=== PATIENT | male | born 1955 | race African-American/Black ===

== ENCOUNTER → 2017-02-25 | Outpatient (CLI) | payer MEDICARE, MEDICAID ==
[~2017-02-25] VITALS: Ht 177.8 cm; Wt 141.1 kg
[~2017-02-25] MED LIST: ALLP100T PO; AML5T; AMLO10TA82 PO; ASP325T PO; ATOR80TA PO; CATHETER FLUSH 10 ML SYR IV PRN; CLPD75T PO; COLC0.6T7 PO; FENT50VI18 IJ; GLIM4TAB PO; HYDR-3820 PO; HYDROCODONE/APAP; HYZAAR; ISOS30TA3 PO; LOSA1TAB15 PO; MELO15TA39 PO; METO-272 PO; MNTL10T PO; MTF500T PO; MTP100TCR PO; NITRO; PANT40TA2 PO; POTA10CA43 PO; PROVENTIL; REGADENOSON 0.4 MG/5 ML SYR (LEXISCAN) IV ONE; SIMV40TA2; SUCR1TAB36 PO; VALS1TAB43 PO; [UNRECOGNIZED DRUG - CODE] IM
[2017-02-25 08:08] LABS: ALANINE AMINOTRANSFERASE 33 U/L (0-55); ALBUMIN 4.2 G/DL (3.2-4.5); ANION GAP 10 MMOL/L (5-14); ASPARTATE AMINO TRANSFERASE 26 U/L (5-34); BILIRUBIN,TOTAL 0.8 MG/DL (0.1-1.0); BLOOD UREA NITROGEN 11 MG/DL (7-18); BUN/CREATININE RATIO 13; CALCIUM 8.9 MG/DL (8.5-10.1); CARBON DIOXIDE 24 MMOL/L (21-32); CHLORIDE 106 MMOL/L (98-107); CHOLESTEROL 122 MG/DL (< 200); CREATININE SERUM 0.83 MG/DL (0.60-1.30); DIRECT LDL 65 MG/DL (1-129); GFR ESTIMATED > 60; GLUCOSE 179 MG/DL (70-105); POTASSIUM 3.7 MMOL/L (3.6-5.0); SODIUM 140 MMOL/L (135-145); TOTAL PROTEIN 7.1 G/DL (6.4-8.2); TRIGLYCERIDES 75 MG/DL (<150); VLDL CHOLESTEROL 15 MG/DL (5-40)
[2017-02-25 09:06] VITALS: BP 184/105
[2017-02-25 09:24] VITALS: BP 204/97
--- NOTE | 2017-02-26 12:29 | STRESS TEST ---
DATE OF SERVICE: 02/25/2017 RESTING AND POST REGADENOSON TECHNETIUM 99M TETROFOSMIN SPECT CT IMAGING ORDERING PHYSICIAN: Bella Yeboah APRN. PRIMARY PHYSICIAN: Dr. Mae. OTHER PHYSICIAN: Dr. Mcqueen. CLINICAL DIAGNOSIS: Chest discomfort, coronary artery disease, hypertension, hyperlipidemia. Baseline images were carried out after injection of 10.22 mCi of sloljrdxla-67b-gsejqdpyhzs. This was followed by 0.4 mg regadenoson and 29.3 mCi of technetium 99m-tetrofosmin for stress imaging. The electrocardiogram showed sinus rhythm at baseline. There was subtle nonspecific T-wave abnormality. The electrocardiogram did not change significantly with the regadenoson infusion. The patient tolerated the procedure well. Review of images at rest and following stress did not indicate any distinct perfusion defects consistent with significant myocardial ischemia or infarction. Gaited images show normal global left ventricular systolic function with a calculated ejection fraction of 62%. Left ventricular ejection fraction end diastolic volume is 135 mL. TID is absent (1.07). CONCLUSION: 1. No evidence of any significant myocardial ischemia or infarction on this study. 2. Normal regional wall motion. 3. Normal global left ventricular systolic function with a calculated ejection fraction of 62%. 4. Mild to moderate cardiomegaly. Job ID: [id number] DocumentID: [id number] Dictated Date: 02/25/2017 16:08:55 Emergency Department Physician Date: 02/26/2017 08:10:45 Dictated By: HALINA MCQUEEN MD, MA, FACP, FACC,
== END ==
LOC: CARD 07:29
PROVIDERS: ATTEND Nurse Practitioner Family
DX: R07.89 Other chest pain (principal); I25.10 Atherosclerotic heart disease of native coronary artery without angina pectoris; I10 Essential (primary) hypertension; E78.4 Other hyperlipidemia
CPT/HCPCS: 36415; 78452; 80053; 80061; 93017

== ENCOUNTER 2018-03-17 07:06 | Day surgery (SDC) | payer MEDICARE, MEDICAID ==
[~2018-03-17] VITALS: Ht 180.3 cm; Wt 135.6 kg
[2018-03-17] VITALS (11 sets, daily range): BP systolic 150–207; BP diastolic 93–118
[~2018-03-17 07:06] MED LIST changes: -CATHETER FLUSH 10 ML SYR IV PRN; -METO-272 PO; +METO-370 PO; -REGADENOSON 0.4 MG/5 ML SYR (LEXISCAN) IV ONE
--- OUTSIDE RECORDS SUMMARY | 2018-03-17 07:11 | XMS REPORT ---
Author Author EBONI RUIZBERLYN [facility] Address [address] [place] [address] Care Team Providers Care Government Clerk Name Role Phone RUIZ JENNIFER Unavailable PROBLEMS Type Condition ICD9-CM Code [id number] Code Onset Dates Condition Status SNOMED Code Problem PPV23 (PNEUMOVAX) DX V03.82 Active 98712728 Problem Need for prophylactic vaccination and inoculation, Influenza V04.81 Active [id number] ALLERGIES No Known Allergies ENCOUNTERS Encounter Location Date Diagnosis [facility] [id number] [place] [id number] Jan, Dental examination Z01.20 [facility] [id number] [place] [phone] Aug, Dental examination Z01.20 [facility] [id number] [place] [address] Jul, Encounter for immunization Z23 [facility] [id number] [place] [address] Apr, Dental examination Z01.20 [facility] [id number] [place] [phone] Dec, Dental examination Z01.20 [facility] [id number] [place] [address] Dec, Dental examination Z01.20 [facility] [id number] [place] [address] Jul, Influenza vaccine administered V04.81 [facility] [id number] [place] [address] Nov, [facility] [id number] [place] [address] Nov, [facility] [address] [facility] [id number] [address] Aug, [facility] [address] [facility] [id number] [place] [address] Aug, [facility] [address] [facility] [id number] [place] [address] Jul, [facility] [address] [facility] [id number] [place] [address] Jul, IMMUNIZATIONS No Known Immunizations SOCIAL HISTORY Never Assessed REASON FOR VISIT dental periomaintenance PLAN OF CARE Activity Details Follow Up 4 Months Reason:hygiene recare + exam and radiographs VITAL SIGNS Blood pressure systolic 130 mmHg 2017-04-18 Blood pressure diastolic 86 mmHg 2017-04-18 MEDICATIONS Medication Instructions Dosage Frequency Start Date End Date Duration Status Singulair 10 MG Orally Once a day 1 tablet in the evening 24h Active Plavix 75 MG Orally Once a day 1 tablet 24h Active Metformin HCl 500 MG Orally Twice a day 1 tablet with meals 12h Active Losartan Potassium 50 MG Orally Once a day 1 tablet 24h Active Glimepiride 1 MG Orally Once a day 1 tablet with breakfast or the first main meal of the day 24h Active Calcarb 600 1500 (600 Ca) MG Active RESULTS No Results PROCEDURES Procedure Date Ordered Result Body Site Periodontal maint procedures April 18, 2017 INSTRUCTIONS MEDICATIONS ADMINISTERED No Known Medications MEDICAL (GENERAL) HISTORY Type Description Date Medical History Diabetes Type II Medical History Hypertension Medical History Heart Stent 2004 Medical History Total Hip Replacement 2000 Surgical History total hip replacement left 2000 Surgical History heart stint 2004 Hospitalization History see above surgeries
--- OUTSIDE RECORDS SUMMARY | 2018-03-17 07:12 | XMS REPORT ---
Author Author JOSE MARIA ARCE [facility] Address [address] [place] [address] Care Team Providers Care Lap Welder Name Role Phone CLAUDE JOSE MARIA Unavailable PROBLEMS Type Condition ICD9-CM Code TYF94-CM Code Onset Dates Condition Status SNOMED Code Problem PPV23 (PNEUMOVAX) DX V03.82 Active 21522505 Problem Need for prophylactic vaccination and inoculation, Influenza V04.81 Active [id number] ALLERGIES No Information ENCOUNTERS Encounter Location Date Diagnosis [facility] [address] [phone] Jan, Dental examination Z01.20 [facility] [address] [id number] Aug, Dental examination Z01.20 [facility] [address] [address] Jul, Encounter for immunization Z23 [facility] [address] [address] Apr, Dental examination Z01.20 [facility] [id number] [place] [id number] Dec, Dental examination Z01.20 [facility] [address] [address] Dec, Dental examination Z01.20 [facility] [address] [address] Jul, Influenza vaccine administered V04.81 [facility] [address] [address] Nov, [facility] [address] [address] Nov, [facility] [address] [facility] [id number] [place] [address] Aug, [facility] [address] [facility] [id number] [address] Aug, [facility] [address] [facility] [id number], [place] [address] Jul, [facility] [address] [facility] [id number], [place] [address] Jul, IMMUNIZATIONS Vaccine Route Administration Date Status FLUARIX QUAD (3 AND UP) 2016 IM Intramuscular Jul 24, 2017 Administered SOCIAL HISTORY Never Assessed REASON FOR VISIT FLU SHOT PLAN OF CARE VITAL SIGNS MEDICATIONS No Known Medications RESULTS No Results PROCEDURES Procedure Date Ordered Result Body Site FLUARIX QUAD (3 & UP)--2014Jul 24, 2017 SINGLE IMMUNIZATION ADMIN Jul 24, 2017 INSTRUCTIONS MEDICATIONS ADMINISTERED No Known Medications MEDICAL (GENERAL) HISTORY Type Description Date Medical History Diabetes Type II Medical History Hypertension Medical History Heart Stent 2004 Medical History Total Hip Replacement 1999 Surgical History total hip replacement left 1999 Surgical History heart stint 2004 Hospitalization History see above surgeries
--- OUTSIDE RECORDS SUMMARY | 2018-03-17 07:12 | XMS REPORT ---
Author Author JENNIFER RUIZ Organization [facility] Address [address] [place] [address] Care Team Providers Care Physics Department Chair Name Role Phone JENNIFER RUIZ Unavailable PROBLEMS Type Condition ICD9-CM Code OLT06-NJ Code Onset Dates Condition Status SNOMED Code Problem Dental examination Z01.20 Active 634270841 Problem PPV23 (PNEUMOVAX) DX V03.82 Active Problem Need for prophylactic vaccination and inoculation, Influenza V04.81 Active [id number] ALLERGIES No Known Allergies SOCIAL HISTORY Never Assessed PLAN OF CARE Activity Details Follow Up 4 Months Reason:dental periodontal maintenance VITAL SIGNS Blood pressure systolic 134 mmHg 2016-12-20 Blood pressure diastolic 88 mmHg 2016-12-20 MEDICATIONS Medication Instructions Dosage Frequency Start Date End Date Duration Status Plavix 75 MG Orally Once a day 1 tablet 24h Active Metformin HCl 500 MG Orally Twice a day 1 tablet with meals 12h Active Calcarb 600 1500 (600 Ca) MG Active Glimepiride 1 MG Orally Once a day 1 tablet with breakfast or the first main meal of the day 24h Active Losartan Potassium 50 MG Orally Once a day 1 tablet 24h Active Singulair 10 MG Orally Once a day 1 tablet in the evening 24h Active RESULTS No Results PROCEDURES Procedure Date Ordered Result Body Site PERIODIC ORAL EXAMINATION Dec 20, 2016 INTRAORL-PERIAPICAL 1 FILM 95508 Dec 20, 2016 INTRAORL-PERIAPICAL EA ADD FILM Dec 20, 2016 INTRAORL-PERIAPICAL EA ADD FILM Dec 20, 2016 PANORAMIC FILM SEE ALSO CODE 32971 Dec 20, 2016 BITEWINGS - FOUR FILMS Dec 20, 2016 IMMUNIZATIONS No Known Immunizations MEDICAL (GENERAL) HISTORY Type Description Date Medical History Diabetes Type II Medical History Hypertension Medical History Heart Stent 2005 Medical History Total Hip Replacement 2000 Surgical History total hip replacement left 2000 Surgical History heart stint 2004 Hospitalization History see above surgeries
--- OUTSIDE RECORDS SUMMARY | 2018-03-17 07:12 | XMS REPORT | Continuity of Care Document ---
Author Author [facility] Address Unknown Phone Unavailable Allergies Active Description Code Type Severity Reaction Onset Reported/Identified Relationship to Patient Clinical Status Yes NKANo Known Allergies NKA Miscellaneous Allergy Unknown N/A 05/25/2007 Medications There is no data. Problems Date Dx Coded Attending Type Code Diagnosis Diagnosed By 03/12/2011 Ot 250.00 DIAB NEGAR WO COMPL, TYPE II OR UNSPEC TY 03/12/2011 Ot 272.4 HYPERLIPIDEMIA NEC/NOS 03/12/2011 Ot 274.9 GOUT NOS 03/12/2011 Ot 278.00 OBESITY, NOS 03/12/2011 Ot 305.1 TOBACCO USE DISORDER 03/12/2011 Ot 401.9 HYPERTENSION NOS 03/12/2011 Ot 413.9 ANGINA PECTORIS NEC/NOS 03/12/2011 Ot 414.01 CORONARY ATHEROSCLEROSIS OF [place] CORON 03/12/2011 Ot 493.90 ASTHMA, UNSPECIFIED 03/12/2011 Ot 715.90 OSTEOARTHROS NOS-UNSPEC 03/12/2011 Ot 780.57 UNSPECIFIED SLEEP APNEA 03/12/2011 Ot 780.79 OTH MALAISE FATIGUE 03/12/2011 Ot 786.05 SHORTNESS OF BREATH 03/12/2011 Ot V43.64 HIP JOINT REPLACEMENT STATUS 03/12/2011 Ot V45.82 PERCUTANEOUS TRANSLUM CORON ANGIOPLASTY 03/12/2011 Ot V58.63 LONG-TERM( CURRENT)USE OF ANTIPLATELET/AN 03/12/2011 Ot V58.66 LONG-TERM ( CURRENT) USE OF ASPIRIN 03/12/2011 Ot V58.69 OTH MED,LT, CURRENT USE 03/12/2011 Ot V85.42 BODY MASS INDEX 45.0-49.9, ADULT 07/10/2012 JOSE MARIA ARCE DO V04.81 FLU DX (3 YRS AND ABOVE, IM) 07/21/2012 Ot 250.00 DIAB NEGAR WO COMPL, TYPE II OR UNSPEC TY 07/21/2012 Ot 272.4 HYPERLIPIDEMIA NEC/NOS 07/21/2012 Ot 274.9 GOUT NOS 07/21/2012 Ot 278.00 OBESITY, NOS 07/21/2012 Ot 305.1 TOBACCO USE DISORDER 07/21/2012 Ot 401.9 HYPERTENSION NOS 07/21/2012 Ot 414.01 CORONARY ATHEROSCLEROSIS OF [place] CORON 07/21/2012 Ot 433.10 CAROTID ARTERY OCCLUSION W O CEREBRAL IN 07/21/2012 Ot 493.90 ASTHMA, UNSPECIFIED 07/21/2012 Ot 607.84 IMPOTENCE, ORGANIC ORIGN 07/21/2012 Ot 780.57 UNSPECIFIED SLEEP APNEA 07/21/2012 Ot 786.59 CHEST PAIN NEC 07/21/2012 Ot V45.82 PERCUTANEOUS TRANSLUM CORON ANGIOPLASTY 07/21/2012 Ot V46.2 SUPPLEMENTAL OXYGEN 07/21/2012 Ot V58.63 LONG-TERM( CURRENT)USE OF ANTIPLATELET/AN 07/21/2012 Ot V58.66 LONG-TERM ( CURRENT) USE OF ASPIRIN 07/21/2012 Ot V58.69 OTH MED,LT, CURRENT USE 07/21/2012 Ot V85.41 BODY MASS INDEX 40.0-44.9, ADULT 04/27/2014 ISA TOLBERT MD Ot 211.3 BENIGN NEOPLASM LG BOWEL 04/27/2014 ISA TOLBERT MD Ot 455.0 INT HEMORRHOID W/O COMPL 04/27/2014 ISA TOLBERT MD Ot 455.2 INT HEMRRHOID W COMP NEC 04/27/2014 ISA TOLBERT MD Ot 562.10 DIVERTICULOSIS COLON (W/O MENT OF HEMORR 11/22/2014 Ot 272.4 11/22/2014 Ot 414.00 11/22/2014 Ot V58.69 11/22/2014 Ot 433.10 11/22/2014 Ot 250.00 11/22/2014 Ot 272.4 11/22/2014 Ot 401.9 11/22/2014 Ot 250.00 11/22/2014 Ot 272.4 11/22/2014 Ot 401.9 11/22/2014 Ot 413.9 11/22/2014 Ot 780.79 11/22/2014 Ot 786.05 11/22/2014 Ot V58.63 11/22/2014 Ot V58.66 11/22/2014 Ot V58.69 11/22/2014 Ot V72.63 11/22/2014 Ot 250.00 11/22/2014 Ot 272.4 11/22/2014 Ot 272.4 11/22/2014 Ot 414.00 11/22/2014 Ot V58.69 11/22/2014 Ot 276.8 11/22/2014 Ot V58.69 11/22/2014 Ot 719.45 11/22/2014 Ot V43.64 11/22/2014 Ot 250.00 11/22/2014 Ot 272.4 11/22/2014 Ot 414.00 11/22/2014 Ot V58.69 11/22/2014 SEGROXANNAE, RENATA M BUSINESS PROPOSAL REP Ot 250.00 11/22/2014 SEGLIE, RENATA M BUSINESS PROPOSAL REP Ot 272.4 11/22/2014 SEGLIE, RENATA M BUSINESS PROPOSAL REP Ot 401.9 11/22/2014 BAIMA, DA L BUSINESS PROPOSAL REP Ot 272.4 11/22/2014 BAIMA, DA L BUSINESS PROPOSAL REP Ot 414.01 11/22/2014 BAIMA, DA L BUSINESS PROPOSAL REP Ot V58.69 11/22/2014 KIERRA, RENATA M BUSINESS PROPOSAL REP Ot 250.00 11/22/2014 KIERRA, RENATA M BUSINESS PROPOSAL REP Ot 272.4 11/22/2014 DIDI ETIENNE, ISA Ot V72.84 11/22/2014 BAIMA, DA L BUSINESS PROPOSAL REP Ot 272.4 11/22/2014 BAIMA, DA L BUSINESS PROPOSAL REP Ot 414.00 11/22/2014 SEGROXANNAE, RENATA M BUSINESS PROPOSAL REP Ot 250.00 11/22/2014 SEGROXANNAE, RENATA M BUSINESS PROPOSAL REP Ot 401.9 11/22/2014 BAIMA, DA L BUSINESS PROPOSAL REP Ot 272.4 11/22/2014 BAIMA, DA L BUSINESS PROPOSAL REP Ot 414.00 11/22/2014 BAIMA, DA L BUSINESS PROPOSAL REP Ot 447.9 12/03/2014 BAIMA, DA L BUSINESS PROPOSAL REP Ot 272.4 12/03/2014 BAIMA, DA L BUSINESS PROPOSAL REP Ot 414.00 12/03/2014 BAIMA, DA L BUSINESS PROPOSAL REP Ot 447.9 12/13/2014 KIERRA ETIENNE, [facility] Ot 715.31 06/27/2015 KIERRA, RENATA M BUSINESS PROPOSAL REP Ot 250.00 06/27/2015 KIERRA, RENATA M BUSINESS PROPOSAL REP Ot 401.9 06/29/2015 KIERRA, RENATA M BUSINESS PROPOSAL REP Ot 250.00 06/29/2015 SEGLIE, RENATA M BUSINESS PROPOSAL REP Ot 401.9 06/30/2015 SEGLIE, RENATA M BUSINESS PROPOSAL REP Ot 250.00 06/30/2015 SEGLIE, RENATA M BUSINESS PROPOSAL REP Ot 401.9 07/13/2015 SEGLIE, RENATA Bailey BUSINESS PROPOSAL REP Ot 250.00 07/13/2015 SEGLIE, RENATA M BUSINESS PROPOSAL REP Ot 401.9 07/24/2015 SEGLIE, RENATA Bailey BUSINESS PROPOSAL REP Ot 250.00 07/24/2015 SEGLIE, RENATA Bailey BUSINESS PROPOSAL REP Ot 401.9 09/06/2015 BAIMADA L BUSINESS PROPOSAL REP Ot E78.5 09/06/2015 BAIMA, DA L BUSINESS PROPOSAL REP Ot F17.200 09/06/2015 BAIMA, DA L BUSINESS PROPOSAL REP Ot G47.30 09/06/2015 BAIMA, DA L BUSINESS PROPOSAL REP Ot I10 09/06/2015 BAIMA, DA L BUSINESS PROPOSAL REP Ot I25.10 09/06/2015 BAIMADA L BUSINESS PROPOSAL REP Ot I77.9 09/21/2015 RICHAR ETIENNE FAC, ALI FACP CCDS Ot E78.5 09/21/2015 RICHAR ETIENNE FAC, ALI FACP CCDS Ot F17.200 09/21/2015 RICHAR ETIENNE FAC, ALI FACP CCDS Ot G47.30 09/21/2015 RICHAR TREJO, ALI FACP CCDS Ot I10 09/21/2015 RICHAR ETIENNE FAC, ALI FACP CCDS Ot I25.10 09/21/2015 RICHAR ETIENNE FAC, ALI FACP CCDS Ot I77.9 10/03/2015 RICHAR ETIENNE FAC, ALI FACP CCDS Ot E78.5 10/03/2015 RICHAR ETIENNE FAC, ALI FACP CCDS Ot F17.200 10/03/2015 RICHAR ETIENNE FACC, ALI FACP CCDS Ot G47.30 10/03/2015 RICHAR ETIENNE FACC, ALI FACP CCDS Ot I10 10/03/2015 RICHAR TREJOC, ALI FACP CCDS Ot I25.10 10/03/2015 RICHAR ETIENNE FACC, ALI FACP CCDS Ot I77.9 01/30/2016 KIERRA ETIENNE, LESLIE R Ot E78.5 01/30/2016 KIERRA ETIENNE, LESLIE R Ot I25.10 01/30/2016 RICHAR ETIENNE FACC, ALI FACP CCDS Ot E78.5 01/30/2016 RICHAR ETIENNE FACC, ALI FACP CCDS Ot I25.10 02/13/2016 RICHAR ETIENNE FACC, ALI FACP CCDS Ot E78.5 02/13/2016 RICHAR ETIENNE FACC, ALI FACP CCDS Ot I25.10 02/16/2016 LESLIE LOZADA MD R Ot E78.5 HYPERLIPIDEMIA, UNSPECIFIED 02/16/2016 KIERRA ETIENNE, LESLIE R Ot I25.10 ATHSCL HEART DISEASE OF [place] CORONARY 02/23/2016 RICHAR ETIENNE FACC, ALI FACP CCDS Ot E78.5 HYPERLIPIDEMIA, UNSPECIFIED 02/23/2016 RICHAR ETIENNE FACC, ALI FACP CCDS Ot I25.10 ATHSCL HEART DISEASE OF [place] CORONARY 03/15/2016 RICHAR ETIENNE FACHaris, ALI FACP CCDS Ot E78.5 HYPERLIPIDEMIA, UNSPECIFIED 03/15/2016 RICHAR ETIENNE FACC, ALI FACP CCDS Ot I25.10 ATHSCL HEART DISEASE OF [place] CORONARY 04/11/2016 RENATA LOZADA Ot E11.9 TYPE 2 DIABETES MELLITUS WITHOUT COMPLIC 04/12/2016 RENATA LOZADA Ot E11.9 TYPE 2 DIABETES MELLITUS WITHOUT COMPLIC 04/18/2016 LESLIE LOZADA MD R Ot M25.551 PAIN IN RIGHT HIP 04/18/2016 LESLIE LOZADA MD R Ot M25.552 PAIN IN LEFT HIP 04/22/2016 SOL TELLEZ, LUKASZ F Ot M54.5 LOW BACK PAIN 04/23/2016 SOL TELLEZ, LUKASZ F Ot M54.5 LOW BACK PAIN 04/26/2016 LESLIE LOZADA MD R Ot M25.551 PAIN IN RIGHT HIP 04/26/2016 LESLIE LOZADA MD R Ot M25.552 PAIN IN LEFT HIP 05/08/2016 RENATA LOZADA Ot E11.9 TYPE 2 DIABETES MELLITUS WITHOUT COMPLIC 05/08/2016 RENATA LOZADA Ot I10 ESSENTIAL (PRIMARY) HYPERTENSION 05/08/2016 RENATA LOZADA Ot I25.10 ATHSCL HEART DISEASE OF [place] CORONARY 05/10/2016 SOL DOLUKASZ Ot M54.5 LOW BACK PAIN 05/10/2016 RENATA LOZADA Ot E11.9 TYPE 2 DIABETES MELLITUS WITHOUT COMPLIC 05/10/2016 RENATA LOZADA Ot I10 ESSENTIAL (PRIMARY) HYPERTENSION 05/10/2016 RENATA LOZADA Ot I25.10 ATHSCL HEART DISEASE OF [place] CORONARY 05/20/2016 SOL DOLUKASZ F Ot M54.5 LOW BACK PAIN 05/23/2016 SOL DO, LUKASZ F Ot M48.06 SPINAL STENOSIS, LUMBAR REGION 05/27/2016 SOL DO, LUKASZ F Ot M48.06 SPINAL STENOSIS, LUMBAR REGION 06/12/2016 LAKISHA PERSAUD DO Ot R13.10 DYSPHAGIA, UNSPECIFIED 06/12/2016 LAKISHA PERSAUD DO Ot Z01.818 ENCOUNTER FOR OTHER PREPROCEDURAL EXAMIN 06/13/2016 LAKISHA PERSAUD DO Ot R13.10 DYSPHAGIA, UNSPECIFIED 06/13/2016 LAKSIHA PERSAUD DO Ot Z01.818 ENCOUNTER FOR OTHER PREPROCEDURAL EXAMIN 06/18/2016 Ot 250.00 DIAB NEGAR WO COMPL, TYPE II OR UNSPEC TY 06/18/2016 Ot 272.4 HYPERLIPIDEMIA NEC/NOS 06/18/2016 Ot 401.9 HYPERTENSION NOS 06/18/2016 Ot 250.00 DIAB NEGAR WO COMPL, TYPE II OR UNSPEC TY 06/18/2016 Ot 272.4 HYPERLIPIDEMIA NEC/NOS 06/18/2016 Ot 401.9 HYPERTENSION NOS 06/18/2016 Ot 413.9 ANGINA PECTORIS NEC/NOS 06/18/2016 Ot 780.79 OTH MALAISE FATIGUE 06/18/2016 Ot 786.05 SHORTNESS OF BREATH 06/18/2016 Ot V58.63 LONG-TERM( CURRENT)USE OF ANTIPLATELET/AN 06/18/2016 Ot V58.66 LONG-TERM ( CURRENT) USE OF ASPIRIN 06/18/2016 Ot V58.69 OTH MED,LT, CURRENT USE 06/18/2016 Ot V72.63 PRE- PROCEDURAL LABORATORY EXAMINATION 06/18/2016 Ot 250.00 DIAB NEGAR WO COMPL, TYPE II OR UNSPEC TY 06/18/2016 Ot 272.4 HYPERLIPIDEMIA NEC/NOS 06/18/2016 Ot 272.4 HYPERLIPIDEMIA NEC/NOS 06/18/2016 Ot 414.00 CORON ATHEROSCLER NOS TYPE VESSEL, NATIV 06/18/2016 Ot V58.69 OTH MED,LT, CURRENT USE 06/18/2016 Ot 276.8 HYPOPOTASSEMIA 06/18/2016 Ot V58.69 OTH MED,LT, CURRENT USE 06/18/2016 Ot 719.45 JOINT PAIN- PELVIS 06/18/2016 Ot V43.64 HIP JOINT REPLACEMENT STATUS 06/18/2016 Ot 250.00 DIAB NEGAR WO COMPL, TYPE II OR UNSPEC TY 06/18/2016 Ot 272.4 HYPERLIPIDEMIA NEC/NOS 06/18/2016 Ot 414.00 CORON ATHEROSCLER NOS TYPE VESSEL, NATIV 06/18/2016 Ot V58.69 OTH MED,LT, CURRENT USE 06/18/2016 RENATA LOZADA BUSINESS PROPOSAL REP Ot 250.00 DIAB NEGAR WO COMPL, TYPE II OR UNSPEC TY 06/18/2016 RENATA LOZADA BUSINESS PROPOSAL REP Ot 272.4 HYPERLIPIDEMIA NEC/NOS 06/18/2016 RENATA LOZADA BUSINESS PROPOSAL REP Ot 401.9 HYPERTENSION NOS 06/18/2016 JOYCELYN DA L BUSINESS PROPOSAL REP Ot 272.4 HYPERLIPIDEMIA NEC/NOS 06/18/2016 JOYCELYN DA L BUSINESS PROPOSAL REP Ot 414.01 CORONARY ATHEROSCLEROSIS OF [place] CORON 06/18/2016 DA HIRSCH BUSINESS PROPOSAL REP Ot V58.69 OTH MED,LT,CURRENT USE 06/18/2016 RENATA LOZADA BUSINESS PROPOSAL REP Ot 250.00 DIAB NEGAR WO COMPL, TYPE II OR UNSPEC TY 06/18/2016 RENATA LOZADA BUSINESS PROPOSAL REP Ot 272.4 HYPERLIPIDEMIA NEC/NOS 06/18/2016 DIDI ETIENNE, ISA Ot V72.84 EXAM PRE-OPERATIVE NOS 06/18/2016 BAIMA DA L BUSINESS PROPOSAL REP Ot 272.4 HYPERLIPIDEMIA NEC/NOS 06/18/2016 BAIRONEN DA L BUSINESS PROPOSAL REP Ot 414.00 CORON ATHEROSCLER NOS TYPE VESSEL, NATIV 06/18/2016 RENATA LOZADA BUSINESS PROPOSAL REP Ot 250.00 DIAB NEGAR WO COMPL, TYPE II OR UNSPEC TY 06/18/2016 RENATA LOZADA BUSINESS PROPOSAL REP Ot 401.9 HYPERTENSION NOS 06/18/2016 JOYCELYN DA L BUSINESS PROPOSAL REP Ot 272.4 HYPERLIPIDEMIA NEC/NOS 06/18/2016 BAIDA HARDWICK L BUSINESS PROPOSAL REP Ot 414.00 CORON ATHEROSCLER NOS TYPE VESSEL, NATIV 06/18/2016 RAYRONEN DA L BUSINESS PROPOSAL REP Ot 447.9 ARTERIAL DISEASE NOS 06/18/2016 KIERRA ETIENNE, LESLIE R Ot 715.31 LOC OSTEOARTH NOS-SHLDER 06/18/2016 RENATA LOZADA BUSINESS PROPOSAL REP Ot 250.00 DIAB NEGAR WO COMPL, TYPE II OR UNSPEC TY 06/18/2016 RENATA LOZADA BUSINESS PROPOSAL REP Ot 401.9 HYPERTENSION NOS 06/18/2016 BAIMA, DA L BUSINESS PROPOSAL REP Ot E78.5 HYPERLIPIDEMIA, UNSPECIFIED 06/18/2016 BAIMA, DA L BUSINESS PROPOSAL REP Ot F17.200 NICOTINE DEPENDENCE, UNSPECIFIED, UNCOMP 06/18/2016 BAIMA, DA L BUSINESS PROPOSAL REP Ot G47.30 SLEEP APNEA, UNSPECIFIED 06/18/2016 BAIMA, DA L BUSINESS PROPOSAL REP Ot I10 ESSENTIAL (PRIMARY) HYPERTENSION 06/18/2016 BAIMA, DA L BUSINESS PROPOSAL REP Ot I25.10 ATHSCL HEART DISEASE OF [place] CORONARY 06/18/2016 RAYRONEN DA L BUSINESS PROPOSAL REP Ot I77.9 DISORDER OF ARTERIES AND ARTERIOLES, UNS 06/18/2016 RICHAR ETIENNE FACC, HALINA FACP CCDS Ot E78.5 HYPERLIPIDEMIA, UNSPECIFIED 06/18/2016 RICHAR ETIENNE FACC, ALI FACP CCDS Ot F17.200 NICOTINE DEPENDENCE, UNSPECIFIED, UNCOMP 06/18/2016 RICHAR ETIENNE FACC, ALI FACP CCDS Ot G47.30 SLEEP APNEA, UNSPECIFIED 06/18/2016 RICHAR ETIENNE FACC, ALI FACP CCDS Ot I10 ESSENTIAL (PRIMARY) HYPERTENSION 06/18/2016 RICHAR ETIENNE FACC, ALI FACP CCDS Ot I25.10 ATHSCL HEART DISEASE OF [place] CORONARY 06/18/2016 RICHAR ETIENNE FACC, ALI FACP CCDS Ot I77.9 DISORDER OF ARTERIES AND ARTERIOLES, UNS 06/18/2016 LESLIE LOZADA MD R Ot E78.5 HYPERLIPIDEMIA, UNSPECIFIED 06/18/2016 LESLIE LOZADA MD R Ot I25.10 ATHSCL HEART DISEASE OF [place] CORONARY 06/18/2016 RICHAR ETIENNE FACC, HALINA FACP CCDS Ot E78.5 HYPERLIPIDEMIA, UNSPECIFIED 06/18/2016 RICHAR ETIENNE FACC, HALINA CAMACHO CCDS Ot I25.10 ATHSCL HEART DISEASE OF [place] CORONARY 06/18/2016 KIERRA ETIENNE, LESLIE R Ot M25.551 PAIN IN RIGHT HIP 06/18/2016 KIERRA ETIENNE, LESLIE R Ot M25.552 PAIN IN LEFT HIP 06/18/2016 RENATA LOZADA BUSINESS PROPOSAL REP Ot E11.9 TYPE 2 DIABETES MELLITUS WITHOUT COMPLIC 06/18/2016 RENATA LOZADA BUSINESS PROPOSAL REP Ot I10 ESSENTIAL (PRIMARY) HYPERTENSION 06/18/2016 RENATA LOZADA BUSINESS PROPOSAL REP Ot I25.10 ATHSCL HEART DISEASE OF [place] CORONARY 06/18/2016 SOL DO LUKASZ F Ot M54.5 LOW BACK PAIN 06/18/2016 SOL DO LUKASZ F Ot M48.06 SPINAL STENOSIS, LUMBAR REGION 06/18/2016 PERSAUD DO, LAKISHA D Ot K29.70 GASTRITIS, UNSPECIFIED, WITHOUT BLEEDING 06/18/2016 PERSAUD DO, LAKISHA D Ot K44.9 DIAPHRAGMATIC HERNIA WITHOUT OBSTRUCTION 06/18/2016 PERSAUD DO, LAKISHA D Ot Z79.899 OTHER [facility] (CURRENT) DRUG THERAPY 06/19/2016 PERSAUD DO, LAKISHA D Ot K29.70 GASTRITIS, UNSPECIFIED, WITHOUT BLEEDING 06/19/2016 PERSAUD DO, LAKISHA D Ot K44.9 DIAPHRAGMATIC HERNIA WITHOUT OBSTRUCTION 06/19/2016 PERSAUD DO, LAKISHA D Ot Z79.899 OTHER [facility] (CURRENT) DRUG THERAPY 06/28/2016 SOL , LUKASZ F Ot M48.06 SPINAL STENOSIS, LUMBAR REGION 06/28/2016 SOL DO LUKASZ F Ot M48.06 SPINAL STENOSIS, LUMBAR REGION 06/29/2016 PERSAUD DO, LAKISHA D Ot K29.70 GASTRITIS, UNSPECIFIED, WITHOUT BLEEDING 06/29/2016 PERSAUD DO, LAKISHA D Ot K44.9 DIAPHRAGMATIC HERNIA WITHOUT OBSTRUCTION 06/29/2016 PERSAUD DO, LAKISHA D Ot Z79.899 OTHER [facility] (CURRENT) DRUG THERAPY 02/25/2017 BAIMADA L BUSINESS PROPOSAL REP Ot R07.89 OTHER CHEST PAIN 02/25/2017 BAIMADA L BUSINESS PROPOSAL REP Ot R07.89 OTHER CHEST PAIN 02/25/2017 BAIMA DA L BUSINESS PROPOSAL REP Ot R07.89 OTHER CHEST PAIN 02/25/2017 BAIMA, DA L BUSINESS PROPOSAL REP Ot R07.89 OTHER CHEST PAIN 02/25/2017 BAIMA, DA L BUSINESS PROPOSAL REP Ot R07.89 OTHER CHEST PAIN 02/25/2017 BAIMA, DA L BUSINESS PROPOSAL REP Ot R07.89 OTHER CHEST PAIN 03/19/2017 BAIMA, DA L BUSINESS PROPOSAL REP Ot E78.4 OTHER HYPERLIPIDEMIA 03/19/2017 BAIMA, DA L BUSINESS PROPOSAL REP Ot I10 ESSENTIAL (PRIMARY) HYPERTENSION 03/19/2017 BAIMA, DA L BUSINESS PROPOSAL REP Ot I25.10 ATHSCL HEART DISEASE OF [place] CORONARY 03/19/2017 BAIMA, DA L BUSINESS PROPOSAL REP Ot R07.89 OTHER CHEST PAIN 04/02/2017 BAIMA, DA L BUSINESS PROPOSAL REP Ot E78.4 OTHER HYPERLIPIDEMIA 04/02/2017 BAIMA, DA L BUSINESS PROPOSAL REP Ot I10 ESSENTIAL (PRIMARY) HYPERTENSION 04/02/2017 BAIMA, DA L BUSINESS PROPOSAL REP Ot I25.10 ATHSCL HEART DISEASE OF [place] CORONARY 04/02/2017 BAIRONEN DA L BUSINESS PROPOSAL REP Ot R07.89 OTHER CHEST PAIN Procedures Code Description Performed By Performed On G0008 FLU ADMINISTRATION ( MEDICARE ONLY) 08/09/2013 Results Test Result Range Capillary blood glucose measurement by glucometer (mass/volume) - 06/18/16 08: 46 Capillary blood glucose measurement by glucometer (mass/volume) 158 mg/dL 70-110 Comprehensive metabolic panel - 02/25/17 07:42 Serum or plasma sodium measurement (moles/volume) 140 mmol/L 135-145 Serum or plasma potassium measurement (moles/volume) 3.7 mmol/L 3.6-5.0 Serum or plasma chloride measurement (moles/volume) 106 mmol/L 98-107 Carbon dioxide 24 mmol/L 21-32 Serum or plasma anion gap determination (moles/volume) 10 mmol/L 5-14 Serum or plasma urea nitrogen measurement (mass/volume) 11 mg/dL 7-18 Serum or plasma creatinine measurement (mass/volume) 0.83 mg/dL 0.60-1.30 Serum or plasma urea nitrogen/creatinine mass ratio 13 NRG Serum or plasma creatinine measurement with calculation of estimated glomerular filtration rate > NRG Serum or plasma glucose measurement (mass/volume) 179 mg/dL 70-105 Serum or plasma calcium measurement (mass/volume) 8.9 mg/dL 8.5-10.1 Serum or plasma total bilirubin measurement (mass/volume) 0.8 mg/dL 0.1-1.0 Serum or plasma alkaline phosphatase measurement (enzymatic activity/volume) 59 U/L 40-136 Serum or plasma aspartate aminotransferase measurement (enzymatic activity/ volume) 26 U/L 5-34 Serum or plasma alanine aminotransferase measurement (enzymatic activity/volume ) 33 U/L 0-55 Serum or plasma protein measurement (mass/volume) 7.1 g/dL 6.4-8.2 Serum or plasma albumin measurement (mass/volume) 4.2 g/dL 3.2-4.5 Lipid 1996 panel - 02/25/17 07:42 Serum or plasma triglyceride measurement (mass/volume) 75 mg/dL <150 Serum or plasma cholesterol measurement (mass/volume) 122 mg/dL < 200 Serum or plasma cholesterol in HDL measurement (mass/volume) 41 mg/ dL 40-60 Cholesterol in LDL [mass/volume] in serum or plasma by direct assay 65 mg/dL 1-129 Serum or plasma cholesterol in VLDL measurement (mass/volume) 15 mg/ dL 5-40 Encounters ACCT No. Visit Date/Time Discharge Status Pt. Type Provider Facility Loc./Unit Complaint [id number] 07/17/2013 08:51:00 07/17/2013 23:59:59 CLS Outpatient JOSE MARIA ARCE DO 08/15/2015 07:22:08 ACT Document Registration [id number] 02/25/2017 07:29:00 02/25/2017 23:59:59 CLS Outpatient DA HIRSCH [facility] CARD I25.10 [id number] 06/28/2016 08:25:00 06/28/2016 09:15:00 DIS Outpatient LUKASZ HORTON DO [facility] REHAB LUMBAR SPINAL STENOSIS [id number] 06/18/2016 07:59:00 06/18/2016 11:10:00 DIS Outpatient LAKISHA PERSAUD DO [facility] SDC DYSPHAGIA [id number] 06/12/2016 05:39:00 06/12/2016 09:28:00 DIS Outpatient LAKISHA PERSAUD DO [facility] PREOP DYSPHAGIA [id number] 04/19/2016 09:53:00 04/19/2016 23:59:59 CLS Outpatient LUKASZ HORTON DO [facility] RAD LUMBAR PAIN [id number] 04/11/2016 09:00:00 04/11/2016 23:59:59 CLS Outpatient RENATA LOZADA [facility] RAD DYSPHAGIA OROPHARYNGEAL PHASE,CAD HTN [id number] 03/27/2016 08:43:00 03/27/2016 23:59:59 CLS Outpatient LESLIE LOZADA MD [facility] RAD BILATERAL HIP PAIN [id number] 01/23/2016 09:07:00 01/23/2016 23:59:59 CLS Outpatient HALINA MCQUEEN MD, FACC, FACP CCDS [facility] LAB HYPERLIPIDEMIA , CAD [id number] 01/23/2016 08:53:00 01/23/2016 23:59:59 CLS Outpatient LESLIE LOZADA MD [facility] LAB HYPERLIPIDEMIA, CAD [id number] 08/15/2015 07:21:00 08/15/2015 23:59:59 CLS Outpatient HALINA MCQUEEN MD, FACC, FACP CCDS [facility] CARD CAD HLD HTN [id number] 08/14/2015 10:49:00 08/14/2015 23:59:59 CLS Outpatient DA HIRSCH [facility] CARD CAD HLD HTN [id number] 06/23/2015 08:16:00 06/23/2015 23:59:59 CLS Outpatient RENATA LOZADA [facility] LAB DIABETES,HTN [id number] 11/22/2014 09:02:00 11/22/2014 23:59:59 CLS Outpatient LESLIE LOZADA MD [facility] RAD PAIN LT SHOULDER [id number] 10/31/2014 07:37:00 10/31/2014 23:59:59 CLS Outpatient DA HIRSCH [facility] LAB CAD,CAROTID ARTERIAL DISEASE,HYPERLIPIDEMIA [id number] 07/05/2014 08:48:00 07/05/2014 23:59:59 CLS Outpatient RENATA LOZADA [facility] LAB DIABETIC,HTN [id number] 04/27/2014 07:01:00 04/27/2014 11:20:00 DIS Outpatient ISA TOLBERT MD [facility] HISTORY OF POLYPS [id number] 04/20/2014 07:16:00 04/20/2014 23:59:59 CLS Outpatient ISA TOLBERT MD [facility] PREOP HISTORY OF POLYPS [id number] 04/04/2014 08:23:00 04/04/2014 23:59:59 CLS Outpatient DA HIRSCH [facility] LAB CAD,HLP,STATIN [place] [id number] 02/09/2014 09:39:00 02/09/2014 23:59:59 CLS Outpatient RENATA LOZADA [facility] LAB DM,HLP [id number] 09/28/2013 07:47:00 09/28/2013 23:59:59 CLS Outpatient DA HIRSCH [facility] LAB CAD,HLP [id number] 03/17/2013 08:33:00 03/17/2013 23:59:59 CLS Outpatient RENATA LOZADA [facility] LAB DIABETES,ELEVATED LIPID [id number] 03/17/2018 09:00:00 PEN Rodney MCQUEEN MD FACC, HALINA CAMACHO CCDS [facility] CATH CAD,CAROTID ARTERIAL DISEASE, HTN [id number] 12/28/2012 08:05:00 Document Registration [id number] 07/21/2012 10:55:00 Document Registration [id number] 06/18/2012 08:14:00 Document Registration [id number] 12/17/2011 08:39:00 Document Registration [id number] 10/07/2011 08:29:00 Document Registration [id number] 10/02/2011 08:41:00 Document Registration [id number] 07/25/2011 09:20:00 Document Registration [id number] 03/12/2011 05:37:00 Document Registration [id number] 03/11/2011 10:35:00 Document Registration [id number] 01/01/2011 08:25:00 Document Registration [id number] 09/18/2010 09:32:00 Document Registration [id number] 03/08/2010 11:07:00 Document Registration [id number] 01/19/2018 09:00:00 01/19/2018 23:59:59 [facility] Outpatient BRANDYN PRADO [facility], [place], [facility]
--- OUTSIDE RECORDS SUMMARY | 2018-03-17 07:12 | XMS REPORT ---
Author Author BERNARDA SCHROEDER Organization [facility] Address [address] [place] [address] Care Team Providers Care Composition Teacher Name Role Phone BERNARDA SCHROEDER Unavailable PROBLEMS Type Condition ICD9-CM Code ZFR87-ZA Code Onset Dates Condition Status SNOMED Code Problem Dental examination Z01.20 Active 959919505 Problem PPV23 (PNEUMOVAX) DX V03.82 Active Problem Need for prophylactic vaccination and inoculation, Influenza V04.81 Active [id number] ALLERGIES No Known Allergies SOCIAL HISTORY Never Assessed PLAN OF CARE Activity Details Follow Up prn Reason:ABEL/Radiographs VITAL SIGNS MEDICATIONS Medication Instructions Dosage Frequency Start Date End Date Duration Status Singulair 10 MG Orally Once a day 1 tablet in the evening 24h Active Metformin HCl 500 MG Orally Twice a day 1 tablet with meals 12h Active Plavix 75 MG Orally Once a day 1 tablet 24h Active Calcarb 600 1500 (600 Ca) MG Active Glimepiride 1 MG Orally Once a day 1 tablet with breakfast or the first main meal of the day 24h Active Losartan Potassium 50 MG Orally Once a day 1 tablet 24h Active RESULTS No Results PROCEDURES Procedure Date Ordered Result Body Site Periodontal maint procedures Dec 10, 2016 Billing Notes on claim Dec 10, 2016 IMMUNIZATIONS No Known Immunizations MEDICAL (GENERAL) HISTORY Type Description Date Medical History Diabetes Type II Medical History Hypertension Medical History Heart Stent 2004 Medical History Total Hip Replacement 2000 Surgical History total hip replacement left 2000 Surgical History heart stint 2005 Hospitalization History see above surgeries
[2018-03-17] MEDS ORDERED: NS IV 1000 ML 1,000 ML IV SCH ×2 (07:41→09:32)
[2018-03-17] MEDS ORDERED: NS IV 1000 ML 1,000 ML ONE (07:42)
[2018-03-17 07:59] LABS: HEMOGLOBIN 13.3 G/DL (13.3-17.7); MEAN PLATELET VOLUME 12.6 FL (7.4-10.4); RED BLOOD COUNT 4.1 10^6/uL (4.35-5.85); WHITE BLOOD COUNT 8.5 10^3/uL (4.3-11.0)
[2018-03-17 08:17] LABS: PROTHROMBIN TIME PATIENT 13.1 SEC (12.2-14.7)
[2018-03-17 08:24] LABS: ALANINE AMINOTRANSFERASE 20 U/L (0-55); ALBUMIN 4.5 GM/DL (3.2-4.5); ALKALINE PHOSPHATASE 58 U/L (40-136); BILIRUBIN,TOTAL 0.7 MG/DL (0.1-1.0); BUN/CREATININE RATIO 14; CALCIUM 9.6 MG/DL (8.5-10.1); CARBON DIOXIDE 23 MMOL/L (21-32); CHLORIDE 109 MMOL/L (98-107); CHOLESTEROL 110 MG/DL (< 200); CREATININE SERUM 1.11 MG/DL (0.60-1.30); GFR ESTIMATED > 60; GLUCOSE 136 MG/DL (70-105); HDL CHOLESTEROL 41 MG/DL (40-60); POTASSIUM 4.2 MMOL/L (3.6-5.0); SODIUM 142 MMOL/L (135-145); TOTAL PROTEIN 7.5 GM/DL (6.4-8.2); TRIGLYCERIDES 64 MG/DL (<150); VLDL CHOLESTEROL 13 MG/DL (5-40)
[2018-03-17] MEDS ORDERED: HEParin 1000 UNIT/ML (10ML VIAL) FOR BOLUS ONE (08:28)
[2018-03-17] MEDS ORDERED: fentaNYL INJECTION 100 MCG/2 ML AMP ONE (08:28)
[2018-03-17] MEDS ORDERED: MIDAZOLAM 5 MG/5 ML (VERSED) VIAL ONE (08:28)
[2018-03-17] MEDS ORDERED: LIDOCAINE 1% INJ 20 ML 20 ML VIAL ONE (08:28)
[2018-03-17] MEDS ORDERED: diphenhydrAMINE 50 MG/ML INJ (BENADRYL) ONE (08:28)
[2018-03-17] MEDS ORDERED: ATOR80TA76 PO (08:37)
[2018-03-17] MEDS ORDERED: ISM60TCR PO (08:37)
[2018-03-17] MEDS ORDERED: CLOP75TA28 PO (08:37)
[2018-03-17] MEDS ORDERED: GLIM4TAB PO (08:37)
[2018-03-17] MEDS ORDERED: POTA20TA8 PO (08:37)
[2018-03-17] MEDS ORDERED: MONT10TA24 PO (08:37)
[2018-03-17] MEDS ORDERED: LOSA100T28 PO (08:37)
[2018-03-17] MEDS ORDERED: NITR0.4T39 SL (08:37)
[2018-03-17] MEDS ORDERED: CLON0.2T PO (08:37)
[2018-03-17] MEDS ORDERED: PANT40TA2 PO (08:37)
[2018-03-17] MEDS ORDERED: MULT-35 PO (08:37)
[2018-03-17] MEDS ORDERED: METF10002 PO (08:37)
[2018-03-17] MEDS ORDERED: ALLO300T2 PO (08:47)
[2018-03-17] MEDS ORDERED: SILD100T PO (08:47)
[2018-03-17] MEDS ORDERED: NS IV 1000 ML 3,000 ML ONE (09:23)
--- NOTE | 2018-03-17 09:28 | Cardiac Procedure Note-CS/ASA ---
Pre-Procedure Note Pre-Op Procedure Note H&P Reviewed The H&P was reviewed, patient examined and no changes noted. Date H&P Reviewed: March 17, 2018 Time H&P Reviewed: 09:00 Conscious Sedation Pre-Proced Time Reviewed: 09:00 ASA Class: 3 Airway Mallampati Classification: (little traverse appropriate class) I. II. III, IV Lungs Heart ASA score ASA 1: a normal healthy patient ASA 2: a patient with a mild systemic disease (mid diabetes, controlled hypertension, obesity ASA 3: a patient with a severe systemic disease that limits activity (angina , COPD, prior Myocardial infarction) ASA 4: a patient with an incapacitating disease that is a constant threat to life (CHF, renal failure) ASA 5: a moribund patient not expected to survive 24 hrs. (ruptured aneurysm) ASA 6: a declared brain patient whose organs are being harvested. For emergent operations, add the letter E after the classification Grade 3 Sedation Plan: Analgesia, Amnesia, Plan communicated to team members, Discussed options with patient/fam, Discussed risks with patient/fam Note The patient is an appropriate candidate to undergo the planned procedure, sedation, and anesthesia. The patient immediately re-assessed prior to indication. HALINA MCQUEEN MD FACP FAC CCDS March 17, 2018 09:28
--- NOTE | 2018-03-17 09:35 | Discharge Inst-Cardiology ---
Discharge Inst-Cardiac Discharge Medications Continued Medications: Allopurinol (Allopurinol) 300 Mg Tablet 300 MG PO DAILY PRN for GOUT PAIN, TAB Atorvastatin Calcium (Atorvastatin Calcium) 80 Mg Tablet 80 MG PO DAILY, TAB Clonidine HCl (Clonidine HCl) 0.2 Mg Tablet 0.2 MG PO BID, TAB Clopidogrel Bisulfate (Clopidogrel) 75 Mg Tablet 75 MG PO DAILY, TAB Glimepiride (Glimepiride) 4 Mg Tablet 4 MG PO DAILY, TAB Hydrocodone/Acetaminophen (Hydrocodon-Acetaminophn 10-325) 1 Each Tablet 1 TAB PO Q12H PRN for PAIN-MODERATE, TAB Isosorbide Mononitrate (Isosorbide Mononitrate ER) 60 Mg Tab 60 MG PO DAILY, TAB Losartan Potassium (Losartan Potassium) 100 Mg Tablet 100 MG PO DAILY, TAB Meloxicam (Meloxicam) 15 Mg Tablet 15 MG PO DAILY, TAB Metformin HCl (Metformin HCl) 1,000 Mg Tablet 1000 MG PO BID, TAB Metoprolol Succinate (Metoprolol Succinate) 50 Mg Tab.er.24h 50 MG PO QID, TAB Montelukast Sodium (Montelukast Sodium) 10 Mg Tablet 10 MG PO DAILY, TAB Multivitamin (Daily Multiple Vitamin) 1 Each Tablet 1 TAB PO DAILY, TAB Nitroglycerin (Nitroglycerin) 0.4 Mg Tab.subl 0.4 MG SL UD PRN for CHEST PAIN, TAB Pantoprazole Sodium (Protonix) 40 Mg Tablet.dr 40 MG PO DAILY, TAB Potassium Chloride (Klor-Con M20) 20 Meq Tab.er.prt 20 MEQ PO DAILY Sildenafil Citrate (Viagra) 100 Mg Tablet 100 MG PO UD PRN for ED, TAB Patient Instructions Patient Instructions: Hold METFORMIN until the evening of 03/19/18 HALINA MCQUEEN MD FACP FAC CCDS March 17, 2018 09:35
--- NOTE | 2018-03-17 09:36 | Discharge Inst-Post CATH ---
Discharge Inst-CATH Post Cardiac Cath D/C Inst Follow Up/Plan HOLD METFORMIN UNTIL THE EVENING OF 03/19/18 F/u with Dr Avendaño in 1-2 weeks CARDIAC CATH DISCHARGE INSTRUCTIONS *Hold Metformin for 48 hours post heart cath. ACTIVITY * Go Home directly and rest. * Limit activity of the leg (or wrist if it was used) for 7 days including aerobics, swimming, jogging, bicycling, etc. * Restrict stair-climbing for 7 days if possible, if not, climb up with your non -cath leg, then bring together on the same step. * Avoid lifting, pushing, pulling or excessive movement of the affected extremity for 7 days. * Customary sexual activity may be resumed after 2 days-use caution not to use a position that strains or causes pain to the affected extremity. * No driving for 24 hours. * NO SMOKING. * Avoid straining for bowel movements for 7 days. * Gentle walking on level ground is allowed. * Returning to work will depend on the type of procedure and the results. Your doctor will discuss this with you. CALL YOUR DOCTOR FOR ANY OF THE FOLLOWING: *If bleeding from the puncture site occurs- Apply gentle pressure to site with clean cloth and call your doctor or EMS. * If a knot or lump forms under the skin, increases in size, or causes pain. * If bruising appears to be worsening or moving further down your leg instead of disappearing. * Temperature above 101 F. CARE OF YOUR GROIN INCISION; * Bruising or purple discoloration of the skin near the puncture site is common. * You may shower only, no bathtub bathing for 5 days. Be careful to avoid slipping as your leg may feel stiff. * If a closure device was used on your femoral artery, please see the attached guide regarding care of the device and your leg. * REMOVE the dressing from your groin the next day after your procedure in the shower. CARE OF YOUR WRIST INCISION; * Bruising or purple discoloration of the skin near the puncture site is common. * You may shower. * DO NOT submerge wrist. * Remove dressing in 24 hours. HALINA AVENDAÑO MD FACP [facility] CCDS March 17, 2018 09:36
[2018-03-17] MEDS ORDERED: PATIENT MAY USE OWN MEDS, ALL PO SCH (09:45)
--- NOTE | 2018-03-17 12:38 | CARDIAC CATHETERIZATION ---
DATE OF SERVICE: 03/17/2018 The patient is a 62-year-old man who has a history of coronary artery disease and coronary stenting several years ago. He has been experiencing recurrent chest discomfort and exertional shortness of breath. Cardiac catheterization was carried out today after having obtained an informed consent. PROCEDURE: He was brought to the cardiac catheterization laboratory in a fasting state. Right groin was prepared and draped in usual sterile fashion. Lidocaine 1% local anesthesia. Modified Seldinger technique was used to advance a 5-B[place]wan[place] sheath in right femoral artery, 5-[place] JL4 catheter for left coronary angiography, 5-[place] JR4 catheter for right coronary angiography, 5-[place] pigtail catheter was used for left heart catheterization and left ventricular angiography. At the end of the procedure, angiography of the right femoral artery was carried out through the sheath and Mynx was used to achieve hemostasis. He tolerated the procedure well. HEMODYNAMICS: Left ventricular end-diastolic pressure following coronary angiography was 10 mmHg. There is no significant pressure gradient pullback across the aortic valve. Ascending aortic pressure was 192/104 with a mean of 139 mmHg. LEFT VENTRICULAR ANGIOGRAPHY: Left ventricular angiography was carried out in the right anterior oblique projection. Global left ventricular systolic function is normal and no distinct regional wall motion abnormalities are seen in this view. There did not appear to be significant mitral regurgitation. CORONARY ANGIOGRAPHY: Mild to moderate coronary calcification is present. There is no obstructive disease of the left main coronary artery: The left anterior descending artery has a patent stent in its mid portion. There is mild diffuse plaque throughout the left anterior descending artery. Left circumflex artery exhibits mild plaque. The right coronary artery is dominant and does not exhibit significant obstructive disease. CONCLUSIONS: 1. Mild coronary artery disease. 2. Patent stent in the mid left anterior descending artery. 3. Normal global left ventricular systolic function with ejection fraction 60 to 65%. 4. No significant mitral regurgitation. DISCUSSION AND RECOMMENDATIONS: Based on the results of the study, it appears appropriate to continue a conservative approach. Risk factor modification has been reviewed. Outpatient followup is advised. Job ID: [id number] DocumentID: [id number] Dictated Date: 03/17/2018 09:32:12 Hl7 Interface Developer Date: 03/17/2018 12:37:25 Dictated By: HALINA MCQUEEN MD, MA, FACP, FACC,
== END 2018-03-17 12:45 | disposition home or self-care (01) ==
LOC: CATH 07:06 → SURG 09:42 → CATH 12:45
PROVIDERS: ATTEND Internal Medicine Cardiovascular Disease
DX: I25.10 Atherosclerotic heart disease of native coronary artery without angina pectoris (principal); I10 Essential (primary) hypertension; E78.5 Hyperlipidemia, unspecified; E11.9 Type 2 diabetes mellitus without complications; F17.210 Nicotine dependence, cigarettes, uncomplicated; G47.30 Sleep apnea, unspecified; E66.9 Obesity, unspecified; Z68.41 Body mass index [BMI] 40.0-44.9, adult; Z79.02 Long term (current) use of antithrombotics/antiplatelets; Z79.84 Long term (current) use of oral hypoglycemic drugs; Z79.899 Other long term (current) drug therapy; Z95.5 Presence of coronary angioplasty implant and graft
CPT/HCPCS: 36415; 80053; 80061; 85027; 85610; 87081; 93005; 93458

== ENCOUNTER → 2018-06-04 | Outpatient (CLI) | payer MEDICARE, MEDICAID ==
[~2018-06-04] MED LIST changes: +ALLO300T2 PO; +ATOR80TA76 PO; +CLON0.2T PO; +CLOP75TA28 PO; +ISM60TCR PO; +LOSA100T28 PO; +METF10002 PO; +MONT10TA24 PO; +MULT-35 PO; +NITR0.4T39 SL; +POTA20TA8 PO; +SILD100T PO
[2018-06-04 10:00] LABS: BASOPHILS % (AUTO) 0 % (0-10); EOSINOPHILS # (AUTO) 0.3 10^3/uL (0.0-0.3); EOSINOPHILS % (AUTO) 3 % (0-10); HEMATOCRIT 40 % (40-54); HEMOGLOBIN 13.3 G/DL (13.3-17.7); LYMPHOCYTES % (AUTO) 26 % (12-44); MEAN CORPUSCULAR HEMOGLOBIN 32 PG (25-34); MEAN CORPUSCULAR HGB CONC 34 G/DL (32-36); MEAN CORPUSCULAR VOLUME 96 FL (80-99); MEAN PLATELET VOLUME 12.3 FL (7.4-10.4); MONOCYTES # (AUTO) 0.6 X 10^3 (0.0-1.0); MONOCYTES % (AUTO) 8 % (0-12); NEUTROPHILS # (AUTO) 4.7 X 10^3 (1.8-7.8); NEUTROPHILS % (AUTO) 62 % (42-75); PLATELET COUNT 131 10^3/uL (130-400); RED BLOOD COUNT 4.14 10^6/uL (4.35-5.85); WHITE BLOOD COUNT 7.7 10^3/uL (4.3-11.0)
[2018-06-04 10:27] LABS: ALANINE AMINOTRANSFERASE 34 U/L (0-55); ALBUMIN 4.3 GM/DL (3.2-4.5); ALKALINE PHOSPHATASE 62 U/L (40-136); BILIRUBIN,TOTAL 0.9 MG/DL (0.1-1.0); BUN/CREATININE RATIO 16; CALCIUM 9.4 MG/DL (8.5-10.1); CARBON DIOXIDE 25 MMOL/L (21-32); CHLORIDE 106 MMOL/L (98-107); CHOLESTEROL 126 MG/DL (< 200); CREATININE SERUM 0.85 MG/DL (0.60-1.30); GFR ESTIMATED > 60; GLUCOSE 162 MG/DL (70-105); HDL CHOLESTEROL 42 MG/DL (40-60); POTASSIUM 3.9 MMOL/L (3.6-5.0); SODIUM 139 MMOL/L (135-145); TOTAL PROTEIN 7.6 GM/DL (6.4-8.2); TRIGLYCERIDES 70 MG/DL (<150); VLDL CHOLESTEROL 14 MG/DL (5-40)
== END ==
LOC: LAB 09:42
PROVIDERS: ATTEND Family Medicine
DX: I20.8 Other forms of angina pectoris (principal); I10 Essential (primary) hypertension; E08.8 Diabetes mellitus due to underlying condition with unspecified complications; M54.40 Lumbago with sciatica, unspecified side; G89.29 Other chronic pain
CPT/HCPCS: 36415; 80053; 80061; 83036; 84443; 85025

== ENCOUNTER → 2018-12-25 | Outpatient (CLI) | payer MEDICARE, MEDICAID ==
[~2018-12-25] MED LIST changes: -LOSA100T28 PO; +LOSA100T57 PO; +METF-399 PO; -METF10002 PO
[2018-12-25 08:38] LABS: ALANINE AMINOTRANSFERASE 24 U/L (0-55); ALBUMIN 4.3 GM/DL (3.2-4.5); ALKALINE PHOSPHATASE 56 U/L (40-136); BILIRUBIN,TOTAL 0.7 MG/DL (0.1-1.0); BUN/CREATININE RATIO 14; CALCIUM 9.6 MG/DL (8.5-10.1); CARBON DIOXIDE 26 MMOL/L (21-32); CHLORIDE 104 MMOL/L (98-107); CHOLESTEROL 108 MG/DL (< 200); CREATININE SERUM 1.03 MG/DL (0.60-1.30); GFR ESTIMATED > 60; GLUCOSE 134 MG/DL (70-105); SODIUM 140 MMOL/L (135-145); TOTAL PROTEIN 7.1 GM/DL (6.4-8.2); TRIGLYCERIDES 74 MG/DL (<150); VLDL CHOLESTEROL 15 MG/DL (5-40)
[2018-12-25 09:41] LABS: HDL CHOLESTEROL 39 MG/DL (40-60)
== END ==
LOC: LAB 08:09
PROVIDERS: ATTEND Internal Medicine Cardiovascular Disease
DX: I25.10 Atherosclerotic heart disease of native coronary artery without angina pectoris (principal); I77.9 Disorder of arteries and arterioles, unspecified; E11.9 Type 2 diabetes mellitus without complications; E78.5 Hyperlipidemia, unspecified; I10 Essential (primary) hypertension; M79.89 Other specified soft tissue disorders; E66.8 Other obesity; Z72.0 Tobacco use
CPT/HCPCS: 36415; 80053; 80061; 84443

== ENCOUNTER → 2019-09-02 | Outpatient (CLI) | payer MEDICARE, MEDICAID ==
[2019-09-02 07:34] LABS: ALANINE AMINOTRANSFERASE 23 U/L (0-55); ALBUMIN 4.1 GM/DL (3.2-4.5); ALKALINE PHOSPHATASE 50 U/L (40-136); BILIRUBIN,TOTAL 0.6 MG/DL (0.1-1.0); BUN/CREATININE RATIO 14; CALCIUM 9.2 MG/DL (8.5-10.1); CARBON DIOXIDE 24 MMOL/L (21-32); CHLORIDE 106 MMOL/L (98-107); CHOLESTEROL 98 MG/DL (< 200); CREATININE SERUM 1.11 MG/DL (0.60-1.30); GFR ESTIMATED > 60; GLUCOSE 134 MG/DL (70-105); HDL CHOLESTEROL 35 MG/DL (40-60); SODIUM 141 MMOL/L (135-145); TOTAL PROTEIN 7.3 GM/DL (6.4-8.2); TRIGLYCERIDES 58 MG/DL (<150); VLDL CHOLESTEROL 12 MG/DL (5-40)
== END ==
LOC: LAB 06:55
PROVIDERS: ATTEND Nurse Practitioner Family
DX: I25.10 Atherosclerotic heart disease of native coronary artery without angina pectoris (principal); E78.5 Hyperlipidemia, unspecified
CPT/HCPCS: 36415; 80053; 80061

== ENCOUNTER → 2019-11-08 | Outpatient (CLI) | payer MEDICARE, MEDICAID ==
[2019-11-08 14:25] LABS: ALANINE AMINOTRANSFERASE 24 U/L (0-55); ALBUMIN 4.4 GM/DL (3.2-4.5); ALKALINE PHOSPHATASE 61 U/L (40-136); BILIRUBIN,TOTAL 0.6 MG/DL (0.1-1.0); BUN/CREATININE RATIO 10; CALCIUM 8.9 MG/DL (8.5-10.1); CARBON DIOXIDE 25 MMOL/L (21-32); CHLORIDE 106 MMOL/L (98-107); CHOLESTEROL 107 MG/DL (< 200); CREATININE SERUM 0.98 MG/DL (0.60-1.30); GFR ESTIMATED > 60; GLUCOSE 76 MG/DL (70-105); HDL CHOLESTEROL 41 MG/DL (40-60); POTASSIUM 4.1 MMOL/L (3.6-5.0); SODIUM 140 MMOL/L (135-145); TOTAL PROTEIN 7.5 GM/DL (6.4-8.2); TRIGLYCERIDES 56 MG/DL (<150); VLDL CHOLESTEROL 11 MG/DL (5-40)
== END ==
LOC: LAB 13:37
PROVIDERS: ATTEND Family Medicine
DX: E78.2 Mixed hyperlipidemia (principal); E11.69 Type 2 diabetes mellitus with other specified complication; I10 Essential (primary) hypertension; E66.9 Obesity, unspecified; M15.8 Other polyosteoarthritis
CPT/HCPCS: 36415; 80053; 80061; 82043; 83036

== ENCOUNTER → 2020-05-12 | Outpatient (CLI) | payer MEDICARE, MEDICAID ==
[~2020-05-12] VITALS: Ht 177 cm; Wt 127.0 kg
[~2020-05-12] MED LIST changes: +ACHYD1T PO; +CATHETER FLUSH 10 ML SYR IV PRN; +GLIM4TAB5 PO; -HYDR-3820 PO; -METO-370 PO; +METO50TA7 PO; -MONT10TA24 PO; +MONT10TA26 PO; +REGADENOSON 0.4 MG/5 ML SYR (LEXISCAN) IV ONE
[2020-05-12 08:49] VITALS: BP 173/103
--- NOTE | 2020-05-12 17:49 | STRESS TEST ---
DATE OF SERVICE: 05/12/2020 RESTING AND POST REGADENOSON TECHNETIUM-99M TETROFOSMIN SPECT CT IMAGING ORDERING PHYSICIAN: Dr. Avendaño. CLINICAL DIAGNOSES: Coronary artery disease, diabetes mellitus. Baseline images were carried out after injection of 10.91 mCi of technetium-99m Tetrofosmin. This was followed by 0.4 mg regadenoson and 31.8 mCi of technetium-99m Tetrofosmin for stress imaging. The electrocardiogram showed sinus rhythm at baseline. It did not change significantly with the regadenoson infusion. The patient tolerated the procedure well and did not report any significant symptoms. Review of images at rest and following stress indicates a small transient lateral wall perfusion defect. Gated images show well preserved global left ventricular systolic function without distinct regional wall motion abnormality. Left ventricular ejection fraction is calculated to be 43%, but appears higher, subjectively. Left ventricular end diastolic volume is 112 mL. TID is absent (1.13). CONCLUSIONS: 1. The study is suggestive of a small amount of lateral wall ischemia. 2. Normal regional wall motion. 3. Global left ventricular systolic function appears well preserved. Left ventricular ejection fraction is calculated to be 43%, but appears subjectively higher. 4. Mild cardiomegaly. Job ID: [id number] DocumentID: [id number] Dictated Date: 05/12/2020 14:15:14 Hog Handler Date: 05/12/2020 17:49:38 Dictated By: HALINA AVENDAÑO MD, MA, FACP, FACC,
== END ==
LOC: CARD 07:02
PROVIDERS: ATTEND Internal Medicine Cardiovascular Disease
DX: I25.10 Atherosclerotic heart disease of native coronary artery without angina pectoris (principal); I65.23 Occlusion and stenosis of bilateral carotid arteries; E11.9 Type 2 diabetes mellitus without complications; F52.21 Male erectile disorder; E78.5 Hyperlipidemia, unspecified; R22.40 Localized swelling, mass and lump, unspecified lower limb; I11.9 Hypertensive heart disease without heart failure
CPT/HCPCS: 78452; 93017; A9502

== ENCOUNTER → 2020-05-15 | Outpatient (CLI) | payer MEDICARE, MEDICAID ==
[~2020-05-15] MED LIST changes: -CATHETER FLUSH 10 ML SYR IV PRN; -REGADENOSON 0.4 MG/5 ML SYR (LEXISCAN) IV ONE
== END ==
LOC: CARD 09:27
PROVIDERS: ATTEND Internal Medicine Cardiovascular Disease
DX: I25.10 Atherosclerotic heart disease of native coronary artery without angina pectoris (principal); I77.89 Other specified disorders of arteries and arterioles; E11.9 Type 2 diabetes mellitus without complications; F52.21 Male erectile disorder; E78.5 Hyperlipidemia, unspecified; M79.89 Other specified soft tissue disorders; I11.9 Hypertensive heart disease without heart failure
CPT/HCPCS: 93306

== ENCOUNTER → 2022-04-22 | Outpatient (CLI) | payer MEDICARE, MEDICAID ==
[~2022-04-22] MED LIST changes: +CLN.2T PO; -CLON0.2T PO; -ISM60TCR PO; +ISOS60TA63 PO; +MONT-40 PO; -MONT10TA26 PO; +POTA-169 PO; -POTA20TA8 PO
[2022-04-22 09:17] LABS: CALCIUM 8.9 MG/DL (8.5-10.1); CREATININE SERUM 1.13 MG/DL (0.60-1.30); MAGNESIUM 1.8 MG/DL (1.6-2.4); POTASSIUM 4.1 MMOL/L (3.6-5.0)
== END ==
LOC: LAB 08:27
PROVIDERS: ATTEND Nurse Practitioner Family
DX: I25.10 Atherosclerotic heart disease of native coronary artery without angina pectoris (principal); G47.33 Obstructive sleep apnea (adult) (pediatric); I10 Essential (primary) hypertension; E78.2 Mixed hyperlipidemia; I65.23 Occlusion and stenosis of bilateral carotid arteries; Z72.0 Tobacco use
CPT/HCPCS: 36415; 80048; 83735

== ENCOUNTER 2022-05-23 19:27 | Outpatient (CLI) | payer MEDICARE, MEDICAID | END 2022-05-24 06:50 | disposition home or self-care (01) | LOC: SLEEP 19:27 | PROVIDERS: ATTEND Nurse Practitioner | DX: G47.33 Obstructive sleep apnea (adult) (pediatric) (principal) | CPT/HCPCS: 95810 ==

== ENCOUNTER → 2023-05-09 | Outpatient (CLI) | payer MEDICARE, MEDICAID ==
[~2023-05-09] MED LIST changes: -LOSA100T57 PO; +LOSA100T58 PO; +REGADENOSON 0.4 MG/5 ML SYR (LEXISCAN) IV ONE
[2023-05-09] MEDS: CATHETER FLUSH 10 ML SYR IVP PRN ×2 (08:28→09:30)
[2023-05-09 09:25] VITALS: BP 166/100
--- NOTE | 2023-05-13 01:18 | STRESS TEST ---
DATE OF SERVICE: 05/09/2023 RESTING AND POST REGADENOSON TECHNETIUM-99M TETROFOSMIN SPECT CT IMAGING ORDERING PHYSICIAN: Dr. Avendaño. PRIMARY PHYSICIAN: [facility]. CLINICAL DIAGNOSIS: Coronary artery disease. Baseline images were carried out after injection of 10.97 mCi of technetium-99m tetrofosmin. This was followed by 0.4 mg regadenoson and 30.2 mCi of technetium-99m tetrofosmin for stress imaging. The electrocardiogram showed sinus rhythm at baseline. It did not change significantly with the regadenoson infusion. The patient tolerated the procedure well. Review of images at rest and following stress does not indicate any significant perfusion defects consistent with myocardial ischemia or infarction. Gated images show normal global left ventricular systolic function with normal regional wall motion. There is mild cardiomegaly. Left ventricular end-diastolic volume is 105 mL, TID is absent (0.95). CONCLUSIONS: 1. Mild cardiomegaly. 2. No evidence of any significant myocardial ischemia or infarction on this study. 3. Normal regional wall motion. 4. Normal global left ventricular systolic function with a calculated ejection fraction of 54%. Job ID: [id number] DocumentID: [id number] Dictated Date: 05/12/2023 20:37:15 Gear Inspector Date: 05/13/2023 01:15:00 Dictated By: HALINA AVENDAÑO MD; RONEN; FACP; FACC;
== END ==
LOC: CARD 08:02
PROVIDERS: ATTEND Internal Medicine Cardiovascular Disease
DX: I25.10 Atherosclerotic heart disease of native coronary artery without angina pectoris (principal)
CPT/HCPCS: 78452; 93017; A9502

== ENCOUNTER 2023-07-02 05:47 | Outpatient (CLI) | payer MEDICARE, MEDICAID ==
[~2023-07-02] VITALS: Ht 177.8 cm; Wt 115.2 kg
[~2023-07-02 05:47] MED LIST changes: -REGADENOSON 0.4 MG/5 ML SYR (LEXISCAN) IV ONE
[2023-07-04] MEDS ORDERED: LISI40TA9 PO (14:50)
[2023-07-04] MEDS ORDERED: TRIA1TAB3 PO (14:50)
[2023-07-04] MEDS ORDERED: ALBU0.63 IH (14:50)
[2023-07-04] MEDS ORDERED: DOXA4TAB2 PO (14:50)
== END 2023-07-04 14:52 | disposition home or self-care (01) ==
LOC: PREOP 05:47
PROVIDERS: ATTEND Surgery
DX: Z01.818 Encounter for other preprocedural examination (principal)

== ENCOUNTER 2023-07-15 09:16 | Day surgery (SDC) | payer MEDICARE, MEDICAID ==
[~2023-07-15] VITALS: Ht 177.8 cm; Wt 115.2 kg
[~2023-07-15 09:16] MED LIST changes: +ALBU0.63 IH; +DOXA4TAB2 PO; +LISI40TA9 PO; +TRIA1TAB3 PO
[2023-07-15] MEDS ORDERED: LACTATED RINGERS 1,000 ML 1,000 ML IV STA (09:19)
--- NOTE | 2023-07-15 09:41 | Progress Note-Pre Operative ---
Pre-Operative Progress Note Date of Available H&P: Jun 20, 2023 Date H&P Reviewed: Jul 15, 2023 Time H&P Reviewed: 09:40 History & Physical: H&P Reviewed, Patient Examed Pre-Operative Diagnosis: screening colonoscopy LAKISHA PERSAUD DO Jul 15, 2023 09:41
[2023-07-15] MEDS ORDERED: ceFAZolin INJECTION 0 MG ONE (09:52)
[2023-07-15] MEDS ORDERED: ceFAZolin INJECTION 2,000 MG ONE (09:55)
[2023-07-15] MEDS ORDERED: NS (IVPB) 50 ML 50 ML ONE (09:56)
[2023-07-15] MEDS ORDERED: MIDAZOLAM INJ 2 MG/2 ML VIAL ONE (10:06)
--- NOTE | 2023-07-15 10:35 | Discharge Inst-Simple/Standard ---
Discharge Inst-Standard Patient Instructions/Follow Up Plan of Care/Instructions/FU: 2 weeks manuel Activity as Tolerated: Yes Discharge Diet: Regular Diet LAKISHA PERSAUD DO Jul 15, 2023 10:35
[2023-07-15 10:38] VITALS: BP 158/77
--- NOTE | 2023-07-15 10:39 | Progress Note-Post Operative ---
Post-Operative Progess Note Surgeon (s)/Home Health Travel Pt (s) Surgeon LAKISHA PERSAUD DO Home Health Travel Pt: NA Pre-Operative Diagnosis screening colonoscopy Post-Operative Diagnosis colon polyps Procedure & Operative Findings Date of Procedure 07/15/23 Procedure Performed/Findings colonoscopy with hot box polypectomy x4 Anesthesia Type per BICYCLE REPAIRER Estimated Blood Loss Estimated blood loss (mL): none Specimens/Packing Specimens Removed sigmoid polyps x3. rectal polyp x1 LAKISHA PERSAUD DO Jul 15, 2023 10:39
[2023-07-15 11:19] VITALS: BP 190/97
[2023-07-15 11:25] VITALS: BP 190/97
[2023-07-15] MEDS ORDERED: ceFAZolin INJECTION 2,000 MG in NS (IVPB) 50 ML 50 ML IV ONE (11:45)
--- NOTE | 2023-07-15 12:05 | Anesthesia-General Post-Op ---
MAC Patient Condition Mental Status/LOC: Same as Preop Cardiovascular: Satisfactory Nausea/Vomiting: Absent Respiratory: Satisfactory Pain: Controlled Complications: Absent Post Op Complications Complications None Follow Up Care/Instructions Patient Instructions None needed. Anesthesiology Discharge Order Discharge Order Patient is doing well, no complaints, stable vital signs, no apparent adverse anesthesia problems. No complications reported per nursing. NEDA PERLA CRNA Jul 15, 2023 12:05
--- NOTE | 2023-07-15 19:40 | OPERATIVE REPORT ---
DATE OF SERVICE: 07/15/2023 PREOPERATIVE DIAGNOSIS: Screening colonoscopy. POSTOPERATIVE DIAGNOSIS: Colon polyps. PROCEDURE: Colonoscopy with hot biopsy polypectomy x4. SURGEON Lakisha London DO ANESTHESIA: Per DIRECTOR INSTRUCTIONAL MATERIAL. ESTIMATED BLOOD LOSS: None. COMPLICATIONS: None. INDICATIONS: The patient is a 68-year-old male, needing colonoscopy. He understands risks and benefits of procedure and wished to proceed. Consent was signed in chart. DESCRIPTION OF PROCEDURE: The patient was taken to endoscopy suite, placed in left lateral recumbent position. Timeout was performed. Digital rectal exam was performed. No palpable polyps, masses or ulcerations. Scope was inserted in the rectum, advanced all the way to the cecum with minimal difficulty. Prep was adequate with irrigation and suction. Scope was slowly retracted back. No polyps, masses or ulcerations within the cecum, ascending, transverse and descending colon. Sigmoid colon had 3 polyps, which hot biopsy polypectomy was performed. Scope was then continuously retracted back to the rectum where another small polyp was present, which hot biopsy polypectomy was performed. Scope was retroflexed noting no other pathology. Scope was returned to its normal position, slowly withdrawn until completely removed. The patient tolerated the procedure well without complications, taken to recovery room in stable condition. RECOMMENDATIONS: The patient will repeat colonoscopy in 5 years. Any issues before that, be seen at that time. The patient will follow up in 2 weeks to discuss pathology results. Job ID: [id number] DocumentID: [id number] Dictated Date: 07/15/2023 10:35:46 Pattern Perforating Machine Operator Date: 07/15/2023 19:36:00 Dictated By: LAKISHA LONDON DO
== END 2023-07-15 11:25 | disposition home or self-care (01) ==
LOC: ENDO 09:16
PROVIDERS: ATTEND Surgery
DX: Z12.11 Encounter for screening for malignant neoplasm of colon (principal); K63.5 Polyp of colon; K62.1 Rectal polyp; E66.9 Obesity, unspecified; E11.9 Type 2 diabetes mellitus without complications; F17.210 Nicotine dependence, cigarettes, uncomplicated; Z79.02 Long term (current) use of antithrombotics/antiplatelets; Z79.84 Long term (current) use of oral hypoglycemic drugs; Z68.36 Body mass index [BMI] 36.0-36.9, adult
CPT/HCPCS: 82947